=== PATIENT | female | born 1990 | race Caucasian/White ===

== ENCOUNTER 2022-03-02 07:14 | Outpatient (CLI) | payer OTHER ==
[2022-03-02 12:02] LABS: BASOPHILS # (AUTO) 0.1 10^3/uL (0.0-0.1); BASOPHILS % (AUTO) 1.2 %; EOSINOPHILS # (AUTO) 0.3 10^3/uL (0.0-0.7); EOSINOPHILS % (AUTO) 4.4 %; HCT - HEMATOCRIT 43.4 % (37.0-47.0); LYMPHOCYTES # (AUTO) 1.8 10^3/uL (1.5-3.5); LYMPHOCYTES % (AUTO) 30.9 %; MEAN CORPUSCULAR HEMOGLOBIN 27.5 pg (27.0-31.0); MEAN CORPUSCULAR HGB CONC 32.3 g/dL (32.0-36.0); MEAN CORPUSCULAR VOLUME 85.3 fL (81.0-99.0); MONOCYTES # (AUTO) 0.5 10^3/uL (0.0-1.0); MONOCYTES % (AUTO) 9.4 %; NEUTROPHILS # (AUTO) 3.1 10^3/uL (1.5-6.6); NEUTROPHILS % (AUTO) 53.9 %; PLT - PLATELET COUNT 250 10^3/uL (130-450); RED BLOOD COUNT 5.09 10^6/uL (4.20-5.40); RED CELL DISTRIBUTION WIDTH 13.5 % (12.0-15.0); WHITE BLOOD COUNT 5.7 x10^3/uL (4.8-10.8)
[2022-03-02 13:07] LABS: ALBUMIN 4.2 g/dL (3.2-5.5); ALBUMIN/GLOBULIN RATIO 1.4 (1.0-2.2); ALKALINE PHOSPHATASE 52 IU/L (42-121); ALT ALANINE AMINOTRANSFERASE 19 IU/L (10-60); AST ASPARTATE AMINOTRANSFERASE 17 IU/L (10-42); BILIRUBIN,TOTAL 0.9 mg/dL (0.2-1.0); BUN - BLOOD UREA NITROGEN 12 mg/dL (6-20); CALCIUM 9.2 mg/dL (8.5-10.3); CARBON DIOXIDE - CO2 25 mmol/L (21-32); CHLORIDE 106 mmol/L (101-111); CHOLESTEROL 247 mg/dL; CREATININE 0.6 mg/dL (0.4-1.0); GFR - MDRD 117 (>89); GLUCOSE 86 mg/dL (70-100); HDL CHOLESTEROL 31 mg/dL; LDL CHOLESTEROL,CALCULATED 137 mg/dL; LDL/HDL RATIO 4.4 (<4.4); SODIUM 139 mmol/L (135-145); THYROID STIMULATING HORMONE 1.89 uIU/mL (0.34-5.60); TOTAL PROTEIN 7.2 g/dL (6.7-8.2); TRIGLYCERIDES 394 mg/dL; VLDL CHOLESTEROL 79 mg/dL
== END 2022-03-02 07:15 | disposition home or self-care (01) ==
LOC: LAB.N 07:14
PROVIDERS: ATTEND Physician Assistant
DX: Z13.9 Encounter for screening, unspecified (principal); Z13.220 Encounter for screening for lipoid disorders; Z13.29 Encounter for screening for other suspected endocrine disorder; R63.5 Abnormal weight gain
CPT/HCPCS: 36415; 80053; 80061; 83721; 84443; 85025

== ENCOUNTER 2022-03-15 14:54 | Outpatient (CLI) | payer OTHER | END 2022-03-15 14:55 | disposition home or self-care (01) | LOC: DI 14:54 | PROVIDERS: ATTEND Physician Assistant | DX: R01.1 Cardiac murmur, unspecified (principal) | CPT/HCPCS: 93306 ==

== ENCOUNTER 2022-05-13 18:00 | Emergency (ER) | payer OTHER ==
--- NOTE | 2022-05-13 18:27 | ED Physician Documentation ---
History of Present Illness - Stated complaint Stated Complaint: DIARRHEA,FEVER - Chief complaint Chief Complaint: Abd Pain - Additonal information Additional information: 31-year-old female presents the emergency department for evaluation of 4 days watery diarrhea. Up to 6 watery bowel movements a day. Anytime she eats or drinks she reports that it runs through her GI system rather quickly. She denies meche melena but says some of the stools have been awfully dark. There have been no vomiting. Low-grade temperature elevation up to 99 degrees. She endorses a lot of abdominal cramping but today feels bloated. No dysuria urgency or frequency. She recently returned to [place] and is scheduled to go back next week. She has had no recent antibiotics or similar illness in friends or family. No pertinent past surgical history. Takes no prescribed medications. She has not taken anything for this [id number] at home. Review of Systems Constitutional: reports: Fever Eyes: reports: Reviewed and negative Nose: reports: Reviewed and negative Throat: reports: Reviewed and negative Cardiac: reports: Reviewed and negative Respiratory: reports: Reviewed and negative GI: reports: Diarrhea. denies: Nausea, Vomiting, Hematemesis, Bloody / black stool : reports: Reviewed and negative Skin: reports: Reviewed and negative Musculoskeletal: reports: Reviewed and negative PD PAST MEDICAL HISTORY - Allergies Allergies/Adverse Reactions: Allergies Allergy/AdvReac Type Severity Reaction Status Date / Time No Known Drug Allergies Allergy Verified 05/13/22 18:06 PD ED PE NORMAL - General General: Alert and oriented X 3, No acute distress, Well developed/nourished - HEENT HEENT: Atraumatic, Moist mucous membranes - Neck Neck: Supple, no meningeal sign, No adenopathy - Cardiac Cardiac: RRR, No murmur - Respiratory Respiratory: No respiratory distress, Clear bilaterally - Abdomen Abdomen: Normal bowel sounds (Hyperactive), Soft, Non tender - Back Back: No CVA TTP, No spinal TTP - Derm Derm: Normal color, Warm and dry, No rash - Neuro Neuro: Alert and oriented X 3, 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 Eye Opening: Spontaneous Motor: Obeys Commands Verbal: Oriented GCS Score: 15 Results - Vitals Vitals: Vital Signs - 24 hr 05/13/22 18:06 Temperature 36.6 C Heart Rate 79 Respiratory 16 Rate Blood Pressure 143/79 H O2 Saturation 98 Oxygen O2 Source Room air - Labs Labs: Laboratory Tests 05/13/22 05/13/22 05/13/22 18:27 18:27 18:27 WBC 6.2 RBC 5.29 Hgb 14.3 Hct 44.4 MCV 83.9 MCH 27.0 MCHC 32.2 RDW 13.5 Plt Count 265 MPV 10.6 Neut # (Auto) 3.2 Lymph # (Auto) 2.2 Milam # (Auto) 0.6 Eos # (Auto) 0.2 Baso # (Auto) 0.1 Absolute Nucleated RBC 0.00 Nucleated RBC % 0.0 Sodium 137 Potassium 3.6 Chloride 103 Carbon Dioxide 25 Anion Gap 9.0 BUN 10 Creatinine 0.7 Estimated GFR (MDRD) 98 Glucose 116 H Calcium 8.9 Total Bilirubin 0.6 AST 20 ALT 27 Alkaline Phosphatase 67 Total Protein 7.4 Albumin 3.8 Globulin 3.6 Albumin/Globulin Ratio 1.1 Lipase 33 HCG, Quant < 0.60 Urine Color Urine Clarity Urine pH Ur Specific [place] Urine Protein Urine Glucose (UA) Urine Ketones Urine Occult Blood Urine Nitrite Urine Bilirubin Urine Urobilinogen Ur Leukocyte Esterase Urine RBC Urine WBC Ur Squamous Epith Cells Urine Bacteria Ur Microscopic Review Urine Culture Comments 05/13/22 18:30 WBC RBC Hgb Hct MCV MCH MCHC RDW Plt Count MPV Neut # (Auto) Lymph # (Auto) Milam # (Auto) Eos # (Auto) Baso # (Auto) Absolute Nucleated RBC Nucleated RBC % Sodium Potassium Chloride Carbon Dioxide Anion Gap BUN Creatinine Estimated GFR (MDRD) Glucose Calcium Total Bilirubin AST ALT Alkaline Phosphatase Total Protein Albumin Globulin Albumin/Globulin Ratio Lipase HCG, Quant Urine Color YELLOW Urine Clarity CLEAR Urine pH 6.0 Ur Specific [place] 1.015 Urine Protein NEGATIVE Urine Glucose (UA) NEGATIVE Urine Ketones NEGATIVE Urine Occult Blood SMALL H Urine Nitrite NEGATIVE Urine Bilirubin NEGATIVE Urine Urobilinogen 0.2 (NORMAL) Ur Leukocyte Esterase TRACE H Urine RBC 0-5 Urine WBC 0-3 Ur Squamous Epith Cells FEW Squamous Urine Bacteria Rare Ur Microscopic Review INDICATED Urine Culture Comments INDICATED PD MEDICAL DECISION MAKING - ED course Complexity details: reviewed results, re-evaluated patient, considered differential, d/w patient ED course: 31-year-old female presents emergency department for evaluation of diarrhea that began 4 days ago. Nonbloody. She has had some low-grade temperature elevations up to 99 degrees. No focal abdominal tenderness though she endorses cramping. She has recently traveled back from [place]. No recent antibiotics or similar in others at home. On exam she appears rather well. Her abdominal exam was benign with no tenderness elicited. We deferred CT imaging today. She also appears well- hydrated with moist mucous membranes and no tachycardia or hypotension. Did obtain a CBC that showed no leukocytosis and no anemia. Her electrolytes were also unremarkable. A stool culture and a C. difficile are pending though my suspicion for bacterial etiology is rather low. Patient was administered a dose of Imodium here in the emergency department and I am making the recommendation for her to use Imodium once or twice daily with the caution to avoid constipation. I am also making a recommendation for her to use lactobacillus or plain yogurt to help recolonize her gut with healthy intestine dental bacteria. We did discuss emergent return precautions for failure symptoms to resolve. Departure - Departure Disposition: Home, Self Care Clinical Impression: Diarrhea Qualifiers: Diarrhea type: unspecified type Qualified Code(s): R19.7 - Diarrhea, unspecified Condition: Stable Record reviewed to determine appropriate education?: Yes Instructions: ED Diarrhea Viral Comments: Olivia you are seen today in the emergency department because you developed diarrhea about 4 days ago. I suspect it is likely of viral diarrhea that should resolve on its own however we have given you a dose of Imodium here in the emergency department. Typically a dose or 2 of Imodium is very effective at managing diarrhea. I caution you to avoid taking more than 3 or 4 doses as constipation can be a worrisome side effect. Important you stay well-hydrated so encourage you to drink water, broth or Pedialyte. You can also help replenish your intestinal shwetha with healthy bacteria by eating yogurt or taking lactobacillus [id number]. Here in the emergency department your screening labs were essentially normal. We have obtained a stool sample and are testing it for infectious causes that might require antibiotics. We will notify you if these results are positive. Discussed this ED visit with your primary care doctor. Return to the ER if you find that your symptoms do not resolve, you you get excessively dehydrated or have black or bloody stools.
[2022-05-13 18:37] LABS: BASOPHILS # (AUTO) 0.1 10^3/uL (0.0-0.1); BASOPHILS % (AUTO) 0.8 %; EOSINOPHILS # (AUTO) 0.2 10^3/uL (0.0-0.7); EOSINOPHILS % (AUTO) 3.7 %; HCT - HEMATOCRIT 44.4 % (37.0-47.0); HGB - HEMOGLOBIN 14.3 g/dL (12.0-16.0); LYMPHOCYTES # (AUTO) 2.2 10^3/uL (1.5-3.5); LYMPHOCYTES % (AUTO) 34.6 %; MEAN CORPUSCULAR HGB CONC 32.2 g/dL (32.0-36.0); MEAN CORPUSCULAR VOLUME 83.9 fL (81.0-99.0); MEAN PLATELET VOLUME 10.6 fL (7.9-10.8); MONOCYTES # (AUTO) 0.6 10^3/uL (0.0-1.0); NEUTROPHILS # (AUTO) 3.2 10^3/uL (1.5-6.6); NEUTROPHILS % (AUTO) 51.6 %; PLT - PLATELET COUNT 265 10^3/uL (130-450); RED BLOOD COUNT 5.29 10^6/uL (4.20-5.40); RED CELL DISTRIBUTION WIDTH 13.5 % (12.0-15.0); WHITE BLOOD COUNT 6.2 x10^3/uL (4.8-10.8)
[2022-05-13 18:48] LABS: ALBUMIN 3.8 g/dL (3.2-5.5); ALBUMIN/GLOBULIN RATIO 1.1 (1.0-2.2); BILIRUBIN,TOTAL 0.6 mg/dL (0.2-1.0); CALCIUM 8.9 mg/dL (8.5-10.3); CREATININE 0.7 mg/dL (0.4-1.0); POTASSIUM 3.6 mmol/L (3.5-5.0); TOTAL PROTEIN 7.4 g/dL (6.7-8.2)
[2022-05-13] MEDS ORDERED: LOPERAMIDE 2 MG CAPSULE PO STA (18:50)
[2022-05-13 19:01] LABS: BILIRUBIN,URINE NEGATIVE (NEGATIVE); GLUCOSE, URINE (UA) NEGATIVE (NEGATIVE); KETONES,URINE (UA) NEGATIVE (NEGATIVE); LEUKOCYTE ESTERASE, URINE TRACE (NEGATIVE); NITRITE,URINE NEGATIVE (NEGATIVE); OCCULT BLOOD,URINE SMALL (NEGATIVE); PROTEIN,URINE NEGATIVE (NEGATIVE); UROBILINOGEN,URINE 0.2 (NORMAL) E.U./dL (NORMAL)
[2022-05-13 19:23] LABS: BACTERIA,URINE Rare /HPF (None Seen); CLARITY,URINE CLEAR (CLEAR); RBC,URINE 0-5 /HPF (0-5); SQUAMOUS EPITHELIAL CELL,UR FEW Squamous (<= Few); WBC,URINE 0-3 /HPF (0-5)
[2022-05-13 19:29] VITALS: BP 132/88
== END 2022-05-13 19:35 | disposition home or self-care (01) ==
LOC: ED 18:00
DX: R19.7 Diarrhea, unspecified (principal)
CPT/HCPCS: 36415; 80053; 81001; 83690; 84702; 85025; 87077; 87086; 87181; 87493; 99282; 99283; A9270; 81003; 87045; 87046; 87427

== ENCOUNTER 2023-09-15 09:29 | Outpatient (CLI) | payer OTHER ==
[2023-09-15 18:56] LABS: BASOPHILS # (AUTO) 0.1 10^3/uL (0.0-0.1); BASOPHILS % (AUTO) 0.9 %; EOSINOPHILS # (AUTO) 0.2 10^3/uL (0.0-0.7); EOSINOPHILS % (AUTO) 2.4 %; HCT - HEMATOCRIT 45.2 % (37.0-47.0); HGB - HEMOGLOBIN 14.3 g/dL (12.0-16.0); LYMPHOCYTES # (AUTO) 1.7 10^3/uL (1.5-3.5); LYMPHOCYTES % (AUTO) 27.5 %; MEAN CORPUSCULAR HEMOGLOBIN 27.8 pg (27.0-31.0); MEAN CORPUSCULAR HGB CONC 31.6 g/dL (32.0-36.0); MEAN CORPUSCULAR VOLUME 87.8 fL (81.0-99.0); MEAN PLATELET VOLUME 10.9 fL (7.9-10.8); MONOCYTES # (AUTO) 0.6 10^3/uL (0.0-1.0); MONOCYTES % (AUTO) 9.2 %; NEUTROPHILS # (AUTO) 3.8 10^3/uL (1.5-6.6); NEUTROPHILS % (AUTO) 59.7 %; PLT - PLATELET COUNT 267 10^3/uL (130-450); RED BLOOD COUNT 5.15 10^6/uL (4.20-5.40); RED CELL DISTRIBUTION WIDTH 13.3 % (12.0-15.0); WHITE BLOOD COUNT 6.3 x10^3/uL (4.8-10.8)
[2023-09-15 19:38] LABS: ALBUMIN 4.3 g/dL (3.2-5.5); ALBUMIN/GLOBULIN RATIO 1.4 (1.0-2.2); ALKALINE PHOSPHATASE 75 IU/L (42-121); ALT ALANINE AMINOTRANSFERASE 15 IU/L (10-60); AST ASPARTATE AMINOTRANSFERASE 17 IU/L (10-42); BILIRUBIN,TOTAL 0.7 mg/dL (0.2-1.0); BUN - BLOOD UREA NITROGEN 17 mg/dL (6-20); CALCIUM 9.9 mg/dL (8.5-10.3); CARBON DIOXIDE - CO2 27 mmol/L (21-32); CHLORIDE 104 mmol/L (101-111); CHOL/HDL RATIO 5.2 (<4.4); CHOLESTEROL 213 mg/dL; CREATININE 0.7 mg/dL (0.6-1.3); GFR - MDRD 97 (>89); GLUCOSE 74 mg/dL (74-104); HDL CHOLESTEROL 41 mg/dL; LDL CHOLESTEROL,CALCULATED 122 mg/dL; POTASSIUM 4.4 mmol/L (3.5-4.5); SODIUM 137 mmol/L (135-145); TOTAL PROTEIN 7.4 g/dL (6.4-8.9); TRIGLYCERIDES 248 mg/dL (48-352); VLDL CHOLESTEROL 50 mg/dL
== END 2023-09-15 09:30 | disposition home or self-care (01) ==
LOC: LAB.N 09:29
PROVIDERS: ATTEND Physician Assistant
DX: Z00.00 Encounter for general adult medical examination without abnormal findings (principal); R07.89 Other chest pain; E78.5 Hyperlipidemia, unspecified; Z13.29 Encounter for screening for other suspected endocrine disorder
CPT/HCPCS: 36415; 80053; 80061; 83721; 84443; 85025